=== PATIENT | male | born 1985 | race Caucasian/White ===

== ENCOUNTER 2017-12-09 06:49 | Emergency (ER) | payer OTHER ==
[2017-12-09] MEDS ORDERED: ALBUTEROL 2.5 MG/3 ML NEB SOL ONE ×2 (07:19→07:20)
[2017-12-09] MEDS ORDERED: IPRATROPIUM BROM 0.5MG/2.5ML ONE (07:20)
--- NOTE | 2017-12-09 07:50 | ER ---
Nurse's Notes [facility] Name: Matias Martinez Age: 32 yrs Sex: Male : 1985 Arrival Date: 12/09/2017 Time: 06:54 Bed 11 Private MD: Diagnosis: Otitis media, unspecified, left ear Presentation: 12/09 07:05 Presenting complaint: Patient states: sinus drainage last week, and now c/o L ear pain. ss Transition of care: patient was not received from another setting of care. Onset of symptoms was December 04, 2017. Initial Sepsis Screen: Does the patient meet any 2 criteria? No. Patient's initial sepsis screen is negative. Does the patient have a suspected source of infection? No. Patient's initial sepsis screen is negative. Care prior to arrival: None. 07:05 Method Of Arrival: Ambulatory ss 07:05 Acuity: PAUL 5 ss Historical: - Allergies: 07:06 Septra; ss 07:06 Ceclor; ss - Home Meds: 07:09 "rescue inhaler" [Active]; ss - PMHx: 07:09 Bronchitis; ss - PSHx: 07:09 None; ss - Social history:: Smoking status: Patient uses tobacco products, smokes one-half pack cigarettes per day. Screenin:09 Abuse screen: Denies threats or abuse. Denies injuries from another. Nutritional ss screening: No deficits noted. Tuberculosis screening: Never had TB. Fall Risk No fall in past 12 months (0 pts). Assessment: 07:09 General: Appears in no apparent distress. comfortable, Behavior is calm, cooperative, ss Denies fever, fatigue, chills. Pain: Complains of pain in left ear Pain currently is 7 out of 10 on a pain scale. Quality of pain is described as throbbing, Pain began yestereday Is continuous. Neuro: Level of Consciousness is awake, alert, obeys commands, Oriented to person, place, time, situation. Cardiovascular: Capillary refill < 3 seconds is brisk in bilateral fingers. Respiratory: Reports cough that is x 2 weeks, non productive. Airway is patent Trachea midline Respiratory effort is even, unlabored, Respiratory pattern is regular, symmetrical, Breath sounds with wheezes bilaterally. Denies shortness of breath. GI: No signs and/or symptoms were reported involving the gastrointestinal system. EENT: Nares are clear Oral mucosa is moist. Throat is clear Reports nasal congestion "since last week". Derm: Skin is intact, is healthy with good turgor, Skin is dry, Skin is pink, warm \\T\\ dry. normal. Vital Signs: 07:06 BP 146 / 79; Pulse 74; Resp 17; Temp 97.9; Pulse Ox 96% ; Weight 147.42 kg; Height 5 ss ft. 10 in. (177.80 cm); Pain 7/10; 07:06 Body Mass Index 46.63 (147.42 kg, 177.80 cm) ss ED Course: 06:54 Patient arrived in ED. es 06:58 Sheree Newell FNP-C [facility]. kb 06:59 Jere Perez MD is Attending Physician. kb 07:06 Triage completed. ss 07:06 Arm band placed on right wrist. ss 07:09 Patient has correct armband on for positive identification. Bed in low position. Call ss light in reach. 07:24 Stephanie Ellsworth, SARAH is Primary Nurse. ss 07:55 No provider procedures requiring assistance completed. Patient did not have IV access ss during this emergency room visit. Administered Medications: 07:24 Drug: DuoNeb (3:1) (2.5 mg - 0.5 mg) 3 ml Route: Nebulizer; Outcome: 07:50 Discharge ordered by . kb 07:55 Discharged to home ambulatory. ss 07:55 Condition: good 07:55 Discharge instructions given to patient, Instructed on discharge instructions, follow up and referral plans. medication usage, Demonstrated understanding of instructions, follow-up care, medications, Prescriptions given X 1. 07:56 Patient left the ED. ss Signatures: Sheree Newell FNP-C FNP-Sarah Castellon Stephanie Ellsworth, RN RN ss
--- NOTE | 2017-12-09 07:51 | EDPHYS ---
Physician Documentation [facility] Name: Matias Martinez Age: 32 yrs Sex: Male : 1985 Arrival Date: 12/09/2017 Time: 06:54 Bed 11 Private MD: ED Physician Jere Perez HPI: 12/09 07:15 This 32 yrs old Male presents to ER via Ambulatory with complaints of Ear kb Pain. 07:15 The patient presents with pain, moderate. The complaints affect the left ear. Onset: kb The symptoms/episode began/occurred yesterday. Modifying factors: The symptoms are alleviated by nothing, the symptoms are aggravated by nothing. Associated signs and symptoms: Pertinent positives: cough, Pertinent negatives: fever, lightheadedness, nausea, rhinorrhea, sinus trouble, shortness of breath, sore throat, tinnitus, vertigo, vomiting. Severity of symptoms: At their worst the symptoms were moderate in the emergency department the symptoms are unchanged. The patient has not experienced similar symptoms in the past. The patient has not recently seen a physician. Pt reports he has had a cough and sinus congestion for about a week. Yesterday started having left ear pain that was worse this morning. Reports hx of chronic bronchitis that he uses an inhaler for. . Historical: - Allergies: 07:06 Septra; ss 07:06 Ceclor; ss - Home Meds: 07:09 "rescue inhaler" [Active]; ss - PMHx: 07:09 Bronchitis; ss - PSHx: 07:09 None; ss - Social history:: Smoking status: Patient uses tobacco products, smokes one-half pack cigarettes per day. ROS: 07:14 Constitutional: Negative for fever, chills, and weight loss, Cardiovascular: Negative kb for chest pain, palpitations, and edema, Abdomen/GI: Negative for abdominal pain, nausea, vomiting, diarrhea, and constipation, MS/Extremity: Negative for injury and deformity, Skin: Negative for injury, rash, and discoloration, Neuro: Negative for headache, weakness, numbness, tingling, and seizure. 07:14 ENT: Positive for ear pain. 07:14 Respiratory: Positive for cough. Exam: 07:14 Constitutional: This is a well developed, well nourished patient who is awake, alert, kb and in no acute distress. Head/Face: Normocephalic, atraumatic. Neck: Trachea midline, no thyromegaly or masses palpated, and no cervical lymphadenopathy. Supple, full range of motion without nuchal rigidity, or vertebral point tenderness. No Meningismus. Chest/axilla: Normal chest wall appearance and motion. Nontender with no deformity. No lesions are appreciated. Cardiovascular: Regular rate and rhythm with a normal S1 and S2. No gallops, murmurs, or rubs. Normal PMI, no JVD. No pulse deficits. Abdomen/GI: Soft, non-tender, with normal bowel sounds. No distension or tympany. No guarding or rebound. No evidence of tenderness throughout. Skin: Warm, dry with normal turgor. Normal color with no rashes, no lesions, and no evidence of cellulitis. MS/ Extremity: Pulses equal, no cyanosis. Neurovascular intact. Full, normal range of motion. Neuro: Awake and alert, GCS 15, oriented to person, place, time, and situation. Cranial nerves II-XII grossly intact. Motor strength 5/5 in all extremities. Sensory grossly intact. Cerebellar exam normal. Normal gait. 07:14 ENT: External ear(s): are unremarkable, Ear canal(s): are normal, TM's: bulging, on the left, erythema, that is moderate, on the left, Examination of the other ear shows no obvious abnormality, Nose: is normal, Mouth: is normal, Posterior pharynx: is normal. 07:14 Respiratory: the patient does not display signs of respiratory distress, Respirations: normal, Breath sounds: wheezing: inspiratory that is mild, is heard in the left lower lobe and right lower lobe. Vital Signs: 07:06 BP 146 / 79; Pulse 74; Resp 17; Temp 97.9; Pulse Ox 96% ; Weight 147.42 kg; Height 5 ss ft. 10 in. (177.80 cm); Pain 7/10; 07:06 Body Mass Index 46.63 (147.42 kg, 177.80 cm) ss MDM: 07:09 Patient medically screened. kb 07:14 Data reviewed: vital signs, nurses notes. Data interpreted: Pulse oximetry: on room air kb is 96 %. Interpretation: normal. 07:36 Counseling: I had a detailed discussion with the patient and/or guardian regarding: the kb historical points, exam findings, and any diagnostic results supporting the discharge/admit diagnosis, the need for outpatient follow up, a family practitioner, to return to the emergency department if symptoms worsen or persist or if there are any questions or concerns that arise at home. Administered Medications: 07:24 Drug: DuoNeb (3:1) (2.5 mg - 0.5 mg) 3 ml Route: Nebulizer; ss Disposition: 08:02 Co-signature as Attending Physician, Jere Perez MD. rn Disposition: 12/09/17 07:50 Discharged to Home. Impression: Otitis media, unspecified, left ear. - Condition is Stable. - Discharge Instructions: Otitis Media, Adult, [id number]. - Prescriptions for Amoxicillin 875 mg Oral Tablet - take 1 tablet by ORAL route every 12 hours for 7 days; 14 tablet. - Medication Reconciliation Form, Thank You Letter, Antibiotic Education, Prescription Opioid Use form. - Follow up: Emergency Department; When: As needed; Reason: Worsening of condition. Follow up: Private Physician; When: 2 - 3 days; Reason: Recheck today's complaints, Continuance of care, Re-evaluation by your physician. Signatures: Sheree Newell, HEAD FILTER TANK TENDER HELPER-C HEAD FILTER TANK TENDER HELPER-Ckb Jere Perez MD MD rn [facility]phanie turner RN RN
== END 2017-12-09 07:56 | disposition home or self-care (01) ==
LOC: ER 06:49
DX: H66.92 Otitis media, unspecified, left ear (principal)
CPT/HCPCS: 94640; 99284

== ENCOUNTER 2017-12-23 16:43 | Emergency (ER) | payer OTHER ==
--- NOTE | 2017-12-23 18:42 | ER ---
Nurse's Notes [facility] Name: Matias Martinez Age: 32 yrs Sex: Male : 1985 Arrival Date: 12/23/2017 Time: 17:09 Bed Treatment Private MD: Diagnosis: Streptococcal pharyngitis Presentation: 12/23 17:30 Presenting complaint: Patient states: I had an earache last week, I took amoxicillin, ch but now I feel worse. both ears hurt, sore throat, headache, cant hear out of them. Transition of care: patient was not received from another setting of care. Onset of symptoms was December 12, 2017. Initial Sepsis Screen: Does the patient meet any 2 criteria? No. Patient's initial sepsis screen is negative. Does the patient have a suspected source of infection? No. Patient's initial sepsis screen is negative. Care prior to arrival: advil sinus and congestion. 17:30 Method Of Arrival: Ambulatory 17:30 Acuity: PAUL 4 Triage Assessment: 17:32 General: Appears in no apparent distress. comfortable, Behavior is calm, cooperative, ch appropriate for age. Pain: Complains of pain in right ear, left ear and throat Pain currently is 7 out of 10 on a pain scale. Historical: - Allergies: 17:32 Ceclor; ch 17:32 Septra; - Home Meds: 17:32 "rescue inhaler" [Active]; ch - PMHx: 17:32 Bronchitis; ch - PSHx: 17:32 None; - Immunization history:: Adult Immunizations up to date, Flu vaccine is not up to date. - Social history:: Smoking status: Patient uses tobacco products, smokes one-half pack cigarettes per day. Screenin:18 Abuse screen: Denies threats or abuse. Denies injuries from another. Nutritional screening: No deficits noted. Tuberculosis screening: No symptoms or risk factors identified. Fall Risk None identified. Assessment: 18:18 Reassessment: Patient appears in no apparent distress at this time. Patient and/or ch family updated on plan of care and expected duration. Pain level reassessed. Patient is alert, oriented x 3, equal unlabored respirations, skin warm/dry/pink. Patient states symptoms have not improved. General: Appears in no apparent distress. uncomfortable, Behavior is calm, cooperative, appropriate for age. Pain: Complains of pain in left ear and right ear and throat Pain currently is 6 out of 10 on a pain scale. Pain began gradually. Neuro: No deficits noted. Respiratory: Airway is patent Respiratory effort is even, unlabored. GI: No signs and/or symptoms were reported involving the gastrointestinal system. EENT: Reports nasal congestion nasal discharge pain when swallowing chalino ears, throat, and headache, slight. Derm: Skin is pink, warm \\T\\ dry. Musculoskeletal: Circulation, motion, and sensation intact. 18:56 Reassessment: Patient appears in no apparent distress at this time. No changes from ed1 previously documented assessment. Patient and/or family updated on plan of care and expected duration. Pain level reassessed. Patient is alert, oriented x 3, equal unlabored respirations, skin warm/dry/pink. Patient states symptoms have not improved. Vital Signs: 17:32 BP 129 / 98; Pulse 98; Resp 16; Temp 99.6; Pulse Ox 97% on R/A; Weight 149.69 kg; ch Height 5 ft. 11 in. (180.34 cm); Pain 7/10; 18:18 BP 118 / 86; Pulse 95; Resp 14; Temp 99.4; Pulse Ox 97% on R/A; Pain 6/10; ch 17:32 Body Mass Index 46.03 (149.69 kg, 180.34 cm) ED Course: 17:09 Patient arrived in ED. sb2 17:32 Triage completed. 17:32 Arm band placed on left wrist. Patient placed in waiting room. 18:18 No apparent distress. Resting quietly. ch 18:18 Patient has correct armband on for positive identification. Bed in low position. Call light in reach. Side rails up X2. Adult w/ patient. 18:18 No provider procedures requiring assistance completed. Patient did not have IV access ch during this emergency room visit. 18:27 eGne Carmen MD is Attending Physician. gs 18:27 She[facility] Newell [facility]-C [facility]. gs 18:27 Mauri Barnes MD is Attending Physician. gs 18:36 Kenia Longoria LVN is Primary Nurse. ed1 Administered Medications: 18:44 Drug: Augmentin 875 mg Route: PO; ed1 18:56 Follow up: Response: No adverse reaction ed1 Outcome: 18:42 Discharge ordered by . jose 18:56 Discharged to home ambulatory. ed1 18:56 Condition: good 18:56 Discharge instructions given to patient, Instructed on discharge instructions, follow up and referral plans. medication usage, Demonstrated understanding of instructions, follow-up care, medications, Prescriptions given X 1. 18:57 Patient left the ED. ed1 Signatures: Sheree Newell, HEALTHCARE TRANSLATOR-C HEALTHCARE TRANSLATOR-Camille Rick, RN RN Kenia Longoria LVN TUNNEL ELASTIC OPERATOR [employer] ed1 Gene Carmen MD MD gs Billeau, Sheri sb2
[2017-12-23] MEDS ORDERED: AMOX/K CLAV 875 MG TAB ONE (18:43)
--- NOTE | 2017-12-23 18:43 | EDPHYS ---
Physician Documentation [facility] Name: Matias Martinez Age: 32 yrs Sex: Male : 1985 Arrival Date: 12/23/2017 Time: 17:09 Bed Treatment Private MD: ED Physician Mauri Barnes HPI: 12/23 18:39 This 32 yrs old Male presents to ER via Ambulatory with complaints of Flu kb Symptoms. 18:39 The patient presents with sore throat. The patient describes throat pain as constant. kb Onset: The symptoms/episode began/occurred 3 day(s) ago. Severity of symptoms: At their worst the symptoms were moderate, in the emergency department the symptoms are unchanged. Modifying factors: The symptoms are alleviated by nothing, the symptoms are aggravated by swallowing, Patient's oral intake status: good Denies contact with similarly ill indivduals. Associated signs and symptoms: Pertinent positives: earache, fever, Sore throat. The patient has not experienced similar symptoms in the past. The patient has been recently seen at the [facility] Emergency Department, a couple of weeks ago. Pt states he was seen 2 weeks ago for ear pain, given amoxicillin and started to get better. Thursday started having sore throat and bilateral ear pain with fever. Historical: - Allergies: 17:32 Ceclor; ch 17:32 ; ch - Home Meds: 17:32 "rescue inhaler" [Active]; ch - PMHx: 17:32 Bronchitis; ch - PSHx: 17:32 None; ch - Immunization history:: Adult Immunizations up to date, Flu vaccine is not up to date. - Social history:: Smoking status: Patient uses tobacco products, smokes one-half pack cigarettes per day. ROS: 18:39 Constitutional: Negative for fever, chills, and weight loss, Cardiovascular: Negative kb for chest pain, palpitations, and edema, Respiratory: Negative for shortness of breath, cough, wheezing, and pleuritic chest pain, Abdomen/GI: Negative for abdominal pain, nausea, vomiting, diarrhea, and constipation, Back: Negative for injury and pain, : Negative for injury, bleeding, discharge, and swelling, MS/Extremity: Negative for injury and deformity, Skin: Negative for injury, rash, and discoloration, Neuro: Negative for headache, weakness, numbness, tingling, and seizure. 18:39 ENT: Positive for ear pain, sore throat. Exam: 18:39 Constitutional: This is a well developed, well nourished patient who is awake, alert, kb and in no acute distress. Head/Face: Normocephalic, atraumatic. Chest/axilla: Normal chest wall appearance and motion. Nontender with no deformity. No lesions are appreciated. Cardiovascular: Regular rate and rhythm with a normal S1 and S2. No gallops, murmurs, or rubs. Normal PMI, no JVD. No pulse deficits. Respiratory: Lungs have equal breath sounds bilaterally, clear to auscultation and percussion. No rales, rhonchi or wheezes noted. No increased work of breathing, no retractions or nasal flaring. Abdomen/GI: Soft, non-tender, with normal bowel sounds. No distension or tympany. No guarding or rebound. No evidence of tenderness throughout. Skin: Warm, dry with normal turgor. Normal color with no rashes, no lesions, and no evidence of cellulitis. MS/ Extremity: Pulses equal, no cyanosis. Neurovascular intact. Full, normal range of motion. Neuro: Awake and alert, GCS 15, oriented to person, place, time, and situation. Cranial nerves II-XII grossly intact. Motor strength 5/5 in all extremities. Sensory grossly intact. Cerebellar exam normal. Normal gait. 18:39 ENT: External ear(s): are unremarkable, Ear canal(s): are normal, TM's: are normal, Nose: is normal, Mouth: is normal, Posterior pharynx: Airway: normal, Tonsils: bilaterally enlarged, with erythema, with exudate, Uvula: normal, midline, swelling, that is moderate, erythema, that is moderate, exudate, that is moderate. Vital Signs: 17:32 BP 129 / 98; Pulse 98; Resp 16; Temp 99.6; Pulse Ox 97% on R/A; Weight 149.69 kg; ch Height 5 ft. 11 in. (180.34 cm); Pain 7/10; 18:18 BP 118 / 86; Pulse 95; Resp 14; Temp 99.4; Pulse Ox 97% on R/A; Pain 6/10; ch 17:32 Body Mass Index 46.03 (149.69 kg, 180.34 cm) MDM: 18:27 Patient medically screened. 18:41 Data reviewed: vital signs, nurses notes. Data interpreted: Pulse oximetry: on room air kb is 97 %. Interpretation: normal. Counseling: I had a detailed discussion with the patient and/or guardian regarding: the historical points, exam findings, and any diagnostic results supporting the discharge/admit diagnosis, lab results, the need for outpatient follow up, a family practitioner, to return to the emergency department if symptoms worsen or persist or if there are any questions or concerns that arise at home. 12/23 17:33 Order name: Flu; Complete Time: 18:28 12/23 17:33 Order name: Strep; Complete Time: 18:28 Administered Medications: 18:44 Drug: Augmentin 875 mg Route: PO; ed1 18:56 Follow up: Response: No adverse reaction ed1 Disposition: 22:35 Co-signature as Attending Physician, Mauri Barnes MD I agree with the assessment and kdr plan of care. Disposition: 12/23/17 18:42 Discharged to Home. Impression: Streptococcal pharyngitis. - Condition is Stable. - Discharge Instructions: Strep Throat, [id number]-Bump. - Prescriptions for Augmentin 875- 125 mg Oral Tablet - take 1 tablet by ORAL route every 12 hours for 10 days; 20 tablet. - Medication Reconciliation Form, Thank You Letter, Antibiotic Education, Prescription Opioid Use form. - Follow up: Emergency Department; When: As needed; Reason: Worsening of condition. Follow up: Private Physician; When: 2 - 3 days; Reason: Recheck today's complaints, Continuance of care, Re-evaluation by your physician. Signatures: Dispatcher [employer] EDLA Sheree Newell, TECHNICAL MAINTENANCE SPECIALIST-C TECHNICAL MAINTENANCE SPECIALIST-Ckb Camille Umanzor RN RN Mauri Barnes MD MD [facility] Kenia Longoria, HOST AND HOSTESS HOST AND HOSTESS ed1 Gene Carmen MD MD Corrections: (The following items were deleted from the chart) 18:57 18:42 12/23/2017 18:42 Discharged to Home. Impression: Streptococcal pharyngitis. ed1 Condition is Stable. Forms are Medication Reconciliation Form, Thank You Letter, Antibiotic Education, Prescription Opioid Use. Follow up: Emergency Department; When: As needed; Reason: Worsening of condition. Follow up: Private Physician; When: 2 - 3 days; Reason: Recheck today's complaints, Continuance of care, Re-evaluation by your physician. kb
== END 2017-12-23 18:57 | disposition home or self-care (01) ==
LOC: ER 16:43
DX: J02.0 Streptococcal pharyngitis (principal); F17.210 Nicotine dependence, cigarettes, uncomplicated; Z88.8 Allergy status to other drugs, medicaments and biological substances
CPT/HCPCS: 87081; 87804; 99283

== ENCOUNTER 2018-08-11 06:16 | Emergency (ER) | payer OTHER ==
--- OUTSIDE RECORDS SUMMARY | 2018-08-11 06:18 | XMS REPORT ---
:1985 Author Organization [employer] Care Team Providers Name Role Phone Del Flores Provider Role Unavailable Allergies, Adverse Reactions, Alerts Substance Reaction Event Type ceclor Info Not Available Drug Allergy Sulfa Info Not Available Drug Allergy Problems Problem Type Condition Code Onset Dates Condition Status Assessment Psoriasis L40.9 Active Assessment Sexually transmitted disease Z20.2 Active exposure Assessment Obstructive sleep apnea G47.33 Active Assessment Precancerous skin lesion L98.9 Active Problem Obstructive sleep apnea G47.33 Active Problem Body mass index (BMI) of 50-59.9 in Z68.43 Active adult Problem Psoriasis L40.9 Active Assessment Mild intermittent asthma in adult J45.20 Active without complication Assessment Body mass index (BMI) of 50-59.9 in Z68.43 Active adult Problem Mild intermittent asthma in adult J45.20 Active without complication Medications Medication Code System Code Instructions Start Date End Date Status Dosage Zithromax [facility] [id number] 500 MG Orally May 26, May 27, Active 2 tabs once 2017 2017 Results No Known Results Summary Purpose [employer]Clinical[employer] Submission
[2018-08-11] MEDS ORDERED: predniSONE 20 MG TAB ONE (06:59)
[2018-08-11] MEDS ORDERED: ALBUTEROL 2.5 MG/3 ML NEB SOL ONE (06:59)
[2018-08-11] MEDS ORDERED: IPRATROPIUM BROM 0.5MG/2.5ML ONE (06:59)
[2018-08-11 07:20] LABS: Absolute Lymphocytes (CBC) 2.5 K/uL (0.7-4.9); Absolute Monocytes 0.8 K/uL (0.1-1.3); Absolute Neutrophil 4.9 K/uL (1.8-8.0); Basophils % 0.3 % (0-1.3); Eosinophils % 6.1 % (0-4.4); Hematocrit 43.8 % (39.6-49.0); Lymphocytes % 28.7 % (15.3-44.8); MPV 9.8 fL (7.6-11.3); Monocytes % 9.4 % (3.3-12.3); RBC Red Blood Cell Count 5.03 M/uL (4.33-5.43)
[2018-08-11 07:21] LABS: Protime INR 1.06
[2018-08-11 07:36] LABS: ALT/SGPT 21 U/L (12-78); AST/SGOT 13 U/L (15-37); Albumin 3.6 g/dL (3.4-5.0); Alkaline Phosphatase 85 U/L (45-117); BUN Blood Urea Nitrogen 14 mg/dL (7-18); Bicarbonate 29 mmol/L (21-32); Bilirubin Direct < 0.1 mg/dL (0-0.2); Bilirubin Total 0.2 mg/dL (0.2-1.0); Glucose Level 93 mg/dL (74-106); Magnesium 2.2 mg/dL (1.8-2.4); NT PRO-BNP 5 pg/mL (<125); Potassium 4.2 mmol/L (3.5-5.1); Protein, Total 7.3 g/dL (6.4-8.2); Sodium Level 140 mmol/L (136-145); Troponin (Emerg Dept Use Only) < 0.02 ng/mL (0.0-0.045)
--- NOTE | 2018-08-11 08:31 | EDPHYS ---
Physician Documentation [facility] Name: Matias Martinez Age: 33 yrs Sex: Male : 1985 Arrival Date: 08/11/2018 Time: 06:20 Bed 17 Private MD: Del Flores ED Physician Mauri Barnes HPI: 08/11 06:45 This 33 yrs old Male presents to ER via Ambulatory with complaints of Cough, cp Wheezing > 1 Year. 06:45 The patient or guardian reports cough, with no sputum. cp 06:45 Associated signs and symptoms: Pertinent positives: shortness of breath, chest pain cp last night. 06:45 Onset: The symptoms/episode began/occurred 1 week(s) ago. Modifying factors: the cp symptoms are aggravated by activity. Historical: - Allergies: 06:32 Ceclor; aa1 06:32 Septra; aa1 - Home Meds: 06:32 ProAir HFA inhalation inhalation [Active]; aa1 - PMHx: 06:32 Bronchitis; aa1 - PSHx: 06:32 None; aa1 - Immunization history:: Flu vaccine is not up to date. - Social history:: Smoking status: Patient/guardian denies using tobacco. - Ebola Screening: : Patient denies exposure to infectious person Patient denies travel to an Ebola-affected area in the 21 days before illness onset. ROS: 07:00 Constitutional: Negative for body aches, chills, fever, poor PO intake. cp 07:00 Eyes: Negative for injury, pain, redness, and discharge. cp 07:00 ENT: Negative for drainage from ear(s), ear pain, sore throat, difficulty swallowing, difficulty handling secretions. 07:00 Cardiovascular: Negative for chest pain, edema, palpitations. 07:00 Respiratory: Positive for cough, with no reported sputum, shortness of breath, wheezing. 07:00 Abdomen/GI: Negative for abdominal pain, nausea, vomiting, and diarrhea, constipation. 07:00 Back: Negative for radiated pain. 07:00 : Negative for urinary symptoms. 07:00 Skin: Negative for cellulitis, rash. 07:00 Neuro: Negative for altered mental status, headache, syncope, weakness. 07:00 All other systems are negative. Exam: 07:05 Constitutional: The patient appears in no acute distress, alert, awake, cp non-diaphoretic, non-toxic, well developed, well nourished, obese. 07:05 Head/Face: Normocephalic, atraumatic. cp 07:05 Eyes: Pupils equal round and reactive to light, extra-ocular motions intact. Lids and lashes normal. Conjunctiva and sclera are non-icteric and not injected. Cornea within normal limits. Periorbital areas with no swelling, redness, or edema. ENT: Nares patent. No nasal discharge, no septal abnormalities noted. Tympanic membranes are normal and external auditory canals are clear. Oropharynx with no redness, swelling, or masses, exudates, or evidence of obstruction, uvula midline. Mucous membranes moist. Chest/axilla: Normal chest wall appearance and motion. Nontender with no deformity. No lesions are appreciated. 07:05 Cardiovascular: Rate: normal, Rhythm: regular, Heart sounds: murmur, not appreciated, Edema: is not appreciated, JVD: is not appreciated. 07:05 Respiratory: the patient does not display signs of respiratory distress, Respirations: normal, no use of accessory muscles, no retractions, no splinting, no tachypnea, labored breathing, is not present, Breath sounds: decreased breath sounds, are not appreciated, stridor, is not appreciated, wheezing: that is mild, is heard diffusely. 07:05 Abdomen/GI: Inspection: obese Bowel sounds: active, all quadrants, Palpation: abdomen is soft and non-tender, in all quadrants, rebound tenderness, is not appreciated, voluntary guarding, is not appreciated, involuntary guarding, is not appreciated. 07:05 Back: pain, is absent, ROM is normal. 07:05 Skin: cellulitis, is not appreciated, no rash present. 07:05 Neuro: Orientation: to person, place \T\ time. Mentation: is normal, Cerebellar function: is grossly normal, Motor: moves all fours, strength is normal. 07:35 ECG was reviewed by the Attending Physician. cp Vital Signs: 06:32 BP 170 / 98; Pulse 82; Resp 20; Temp 98.1; Pulse Ox 97% on R/A; Weight 163.29 kg; aa1 Height 5 ft. 11 in. (180.34 cm); Pain 0/10; 07:00 BP 140 / 95; Pulse 87; Resp 18; Pulse Ox 99% ; bp 08:27 BP 148 / 98; Pulse 97; Resp 16; Pulse Ox 96% ; bp 06:32 Body Mass Index 50.21 (163.29 kg, 180.34 cm) aa1 MDM: 06:31 Patient medically screened. cp 07:00 Differential diagnosis: bronchitis, flu, URI, pneumonia, cardiac arrythmia, CHF. cp 08:28 Data reviewed: vital signs, nurses notes, lab test result(s), EKG, radiologic studies, cp plain films. 08:28 Test interpretation: by ED physician or midlevel provider: ECG, plain radiologic cp studies. Counseling: I had a detailed discussion with the patient and/or guardian regarding: the historical points, exam findings, and any diagnostic results supporting the discharge/admit diagnosis, the presence of at least one elevated blood pressure reading (>120/80) during this emergency department visit, lab results, radiology results, the need for outpatient follow up, a family practitioner, to return to the emergency department if symptoms worsen or persist or if there are any questions or concerns that arise at home. Response to treatment: the patient's symptoms have markedly improved after treatment, and as a result, I will discharge patient. 08/11 06:39 Order name: Basic Metabolic Panel; Complete Time: 07:38 cp 08/11 07:39 Interpretation: Normal except: GFR 86; CA 8.4. cp 08/11 06:39 Order name: CBC with Diff; Complete Time: 07:38 cp 08/11 07:39 Interpretation: Normal except: EOSINOPHIL % 6.1. cp 08/11 06:39 Order name: LFT's; Complete Time: 07:38 cp 08/11 06:39 Order name: Magnesium; Complete Time: 07:38 cp 08/11 06:39 Order name: NT PRO-BNP; Complete Time: 07:38 cp 08/11 06:39 Order name: PT-INR; Complete Time: 07:38 cp 08/11 06:39 Order name: Troponin (emerg Dept Use Only); Complete Time: 07:38 cp 08/11 06:39 Order name: EKG; Complete Time: 06:42 cp 08/11 06:39 Order name: Cardiac monitoring; Complete Time: 07:09 cp 08/11 06:39 Order name: EKG - Nurse/Tech; Complete Time: 07:40 cp 08/11 06:39 Order name: IV Saline Lock; Complete Time: 07:09 cp 08/11 07:39 Order name: XRAY Chest Pa And Lat (2 Views) 08/11 06:39 Order name: Labs collected and sent; Complete Time: 07:09 cp 08/11 06:39 Order name: O2 Per Protocol; Complete Time: 07:09 08/11 06:39 Order name: O2 Sat Monitoring; Complete Time: 07:09 EC:35 Rate is 75 beats/min. Rhythm is regular. RI interval is normal. QRS interval is normal. cp QT interval is normal. Interpreted by me. Reviewed by me. Administered Medications: 06:45 Drug: Albuterol - atroVENT (3:1) (2.5 mg - 0.5 mg) 3 ml Route: Nebulizer; bp 07:41 Follow up: Response: No adverse reaction; Marked relief of symptoms bp 06:45 Drug: predniSONE 60 mg Route: PO; bp 07:40 Follow up: Response: No adverse reaction; Marked relief of symptoms bp Disposition: 16:13 Co-signature as Attending Physician, Mauri Barnes MD I agree with the assessment and kdr plan of care. Disposition: 08/11/18 08:29 Discharged to Home. Impression: Cough, Wheezing, Elevated blood-pressure reading, without diagnosis of hypertension. - Condition is Stable. - Discharge Instructions: How to Take Your Blood Pressure, [id number], Cough, Adult, Form - Blood Pressure Record Sheet. - Prescriptions for prednisone 50 mg Oral tablet - take 1 tablet by ORAL route once daily for 5 days; 5 tablet. Tessalon Perles 100 mg Oral Capsule - take 2 capsule by ORAL route every 8 hours As needed; 30 capsule. Albuterol Sulfate 90 mcg/actuation - inhale 1-2 puff by INHALATION route every 4-6 hours; 1 Inhaler. - Medication Reconciliation Form, Thank You Letter, Antibiotic Education, Prescription Opioid Use form. - Follow up: Del Flores MD; When: 2 - 3 days; Reason: Recheck today's complaints. - Problem is new. - Symptoms have improved. Signatures: Dispatcher [employer] EDMS Shari Morton RN RN aa1 Mauri Barnes MD MD kdr Roe Belcher PA PA cp Osito Frias, RN RN bp Corrections: (The following items were deleted from the chart) 07:39 07:39 Normal except: GFR 86. cp cp 08:30 08:29 08/11/2018 08:29 Discharged to Home. Impression: Cough; Wheezing. Condition is cp Stable. Forms are Medication Reconciliation Form, Thank You Letter, Antibiotic Education, Prescription Opioid Use. Follow up: Del Flores; When: 2 - 3 days; Reason: Recheck today's complaints. Problem is new. Symptoms have improved. cp 08:43 08:30 08/11/2018 08:29 Discharged to Home. Impression: Cough; Wheezing; Elevated bp blood-pressure reading, without diagnosis of hypertension. Condition is Stable. Forms are Medication Reconciliation Form, Thank You Letter, Antibiotic Education, Prescription Opioid Use. Follow up: Del Flores; When: 2 - 3 days; Reason: Recheck today's complaints. Problem is new. Symptoms have improved. cp
--- NOTE | 2018-08-11 08:31 | ER ---
Nurse's Notes [facility] Name: Matias Martinez Age: 33 yrs Sex: Male : 1985 Arrival Date: 08/11/2018 Time: 06:20 Bed 17 Private MD: Del Flores Diagnosis: Cough;Wheezing;Elevated blood-pressure reading, without diagnosis of hypertension Presentation: 08/11 06:29 Presenting complaint: Patient states: dry cough >1 week. Reports hx of chronic aa1 bronchitis. Transition of care: patient was not received from another setting of care. Onset of symptoms was July 31, 2018. Risk Assessment: Do you want to hurt yourself or someone else? Patient reports no desire to harm self or others. Initial Sepsis Screen: Does the patient meet any 2 criteria? No. Patient's initial sepsis screen is negative. Does the patient have a suspected source of infection? No. Patient's initial sepsis screen is negative. Care prior to arrival: None. 06:29 Method Of Arrival: Ambulatory aa1 06:29 Acuity: PAUL 3 aa1 Triage Assessment: 06:32 General: Appears in no apparent distress. comfortable, Behavior is calm, cooperative, aa1 appropriate for age. 07:00 Respiratory: Reports shortness of breath cough that is Onset: The symptoms/episode bp began/occurred at an unknown time. the patient has mild shortness of breath. Historical: - Allergies: 06:32 Ceclor; aa1 06:32 Septra; aa1 - Home Meds: 06:32 ProAir HFA inhalation inhalation [Active]; aa1 - PMHx: 06:32 Bronchitis; aa1 - PSHx: 06:32 None; aa1 - Immunization history:: Flu vaccine is not up to date. - Social history:: Smoking status: Patient/guardian denies using tobacco. - Ebola Screening: : Patient denies exposure to infectious person Patient denies travel to an Ebola-affected area in the 21 days before illness onset. Screenin:00 Abuse screen: Denies threats or abuse. Denies injuries from another. Nutritional bp screening: No deficits noted. Tuberculosis screening: No symptoms or risk factors identified. Fall Risk None identified. Assessment: 07:00 General: Appears in no apparent distress. comfortable, Behavior is calm, cooperative, bp appropriate for age. Pain: Denies pain. Neuro: Level of Consciousness is awake, alert, obeys commands, Oriented to person, place, time, situation, Appropriate for age. Cardiovascular: Rhythm is sinus rhythm. Respiratory: Airway is patent Respiratory effort is even, unlabored, Respiratory pattern is regular, symmetrical, tachypnea Breath sounds with wheezes bilaterally. GI: No signs and/or symptoms were reported involving the gastrointestinal system. : No signs and/or symptoms were reported regarding the genitourinary system. EENT: No deficits noted. Derm: No deficits noted. Musculoskeletal: No deficits noted. Circulation, motion, and sensation intact. Range of motion: intact in all extremities. 08:26 Reassessment: ALL CURRENT ORDERS COMPLETED, INITIAL RESULTS UNREMARKABLE, DISPO PENDING.bp 08:42 Reassessment: PT D/C HOME AMBULATORY WITH FAMILY, DX WITH COUGH AND WHEEZING. bp Vital Signs: 06:32 BP 170 / 98; Pulse 82; Resp 20; Temp 98.1; Pulse Ox 97% on R/A; Weight 163.29 kg; aa1 Height 5 ft. 11 in. (180.34 cm); Pain 0/10; 07:00 BP 140 / 95; Pulse 87; Resp 18; Pulse Ox 99% ; bp 08:27 BP 148 / 98; Pulse 97; Resp 16; Pulse Ox 96% ; bp 06:32 Body Mass Index 50.21 (163.29 kg, 180.34 cm) aa1 ED Course: 06:20 Patient arrived in ED. am2 06:20 Del Flores MD is Private Physician. am2 06:31 Triage completed. aa1 06:31 [facility]. cp 06:31 Damir Shearer MD is Attending Physician. cp 06:32 Arm band placed on right wrist. aa1 07:00 Patient has correct armband on for positive identification. Bed in low position. Call bp light in reach. Side rails up X2. 07:00 Inserted saline lock: 20 gauge in right antecubital area, using aseptic technique. bp Blood collected. 07:05 Osito Frias, RN is Primary Nurse. bp 07:06 Osito Frias, RN is Primary Nurse. bp 08:01 X-ray completed. Patient tolerated procedure well. Patient moved back from radiology. ls3 08:01 EKG done, by technical sales associate. reviewed by Roe REYEZ. at1 08:02 XRAY Chest Pa And Lat (2 Views) In Process Unspecified. EDMS 08:29 Del Flores MD is Referral Physician. cp 08:42 Mauri Barnes MD is Attending Physician. cp 08:42 No provider procedures requiring assistance completed. IV discontinued, intact, bp bleeding controlled, No redness/swelling at site. Pressure dressing applied. Administered Medications: 06:45 Drug: Albuterol - atroVENT (3:1) (2.5 mg - 0.5 mg) 3 ml Route: Nebulizer; bp 07:41 Follow up: Response: No adverse reaction; Marked relief of symptoms bp 06:45 Drug: predniSONE 60 mg Route: PO; bp 07:40 Follow up: Response: No adverse reaction; Marked relief of symptoms bp Outcome: 08:29 Discharge ordered by MD. cp 08:43 Discharged to home ambulatory, with family. bp 08:43 Condition: stable 08:43 Discharge instructions given to patient, Instructed on discharge instructions, follow up and referral plans. medication usage, Demonstrated understanding of instructions, follow-up care, medications, Prescriptions given X 3. 08:43 Patient left the ED. bp Signatures: Dispatcher [employer] EDMS Shari Morton RN RN aa1 Marizol Lynn, meter record clerk EKG Tat1 Roe Belcher PA PA cp Marizol Elmore am2 Oisto Frias, RN RN bp Alonzo Cordova ls3 Corrections: (The following items were deleted from the chart) 07:07 07:06 Inserted saline lock: 20 gauge in right antecubital area, using aseptic bp technique. Blood collected. bp
--- NOTE | 2018-08-11 08:44 | RAD REPORT ---
EXAM DESCRIPTION: RAD - Chest Pa And Lat (2 Views) - 08/11/2018 8:04 am CLINICAL HISTORY: Cough, shortness of breath COMPARISON: None. TECHNIQUE: PA and lateral views of the chest were obtained. FINDINGS: The lungs are clear of a mass, consolidation or failure finding. Interstitial markings are mildly prominent with the baseline for the patient unknown. Heart size is normal and central vascu lature is within normal limits. No pleural effusion or pneumothorax seen. No acute bony finding not ed. No aortic abnormality. IMPRESSION: No acute cardiopulmonary process.
--- NOTE | 2018-08-11 14:37 | EKG ---
Test Date: 2018-08-11 Test Time: 07:24:55 Roastmaster: PEDRO MEASUREMENT RESULTS: Intervals: Rate: 75 ID: [id number] QRSD: 92 QT: 386 QTc: 431 [place]: P: 34 ID: [id number] QRS: 22 T: 33 INTERPRETIVE STATEMENTS: Normal sinus rhythm Normal ECG No previous ECG available for comparison Electronically Signed On 08-11-18 14:35:28 [employer] PASTRY by Pablo Wilkinson
== END 2018-08-11 08:43 | disposition home or self-care (01) ==
LOC: ER 06:16
DX: R05 Cough (principal); R06.2 Wheezing; R03.0 Elevated blood-pressure reading, without diagnosis of hypertension
CPT/HCPCS: 36415; 71046; 80048; 80076; 83735; 83880; 84484; 85025; 85610; 93005; 94640; 99285; J7512